=== PATIENT | male | born 2005 | race Asian ===

== ENCOUNTER 2025-04-13 01:22 | Inpatient (IN) | payer OTHER ==
[2025-04-13] MEDS ORDERED: cefTRIAXone (ROCEPHIN) 1 GM VIAL ONE (02:21)
[2025-04-13] MEDS ORDERED: Azithromycin 500 MG VIAL ONE (02:21)
[2025-04-13 02:24] LABS: #Basophils 0.03 10x3/uL (0.0-0.2); #Eosinophils Less than 0.03 10x3/uL (0.0-0.7); #Monocytes 1.35 10x3/uL (0.11-0.59); #Neutrophils 7.82 10x3/uL (1.40-6.50); %Basophils 0.3 % (0.0-1.0); %Eosinophils 0.0 % (0.0-10.0); %Lymphocytes 14.2 % (21.0-51.0); %Monocytes 12.5 % (0.0-10.0); %Neutrophils 72.6 % (42.0-75.0); Hematocrit 32.1 % (42.0-52.0); Hemoglobin 10.1 g/dL (14.0-18.0); Mean Corpuscular Hemoglobin 23.7 pg (27.0-31.0); Mean Corpuscular Volume 75.4 fL (78.0-98.0); Platelet Count 345 10x3/uL (130-400); Red Blood Cell (RBC) Count 4.26 mill/uL (4.70-6.10); White Blood Cell (WBC) Count 10.77 10x3/uL (4.8-10.8)
[2025-04-13] MEDS ORDERED: Acetaminophen 500 MG TAB ONE (02:28)
[2025-04-13 02:42] LABS: ALT (SGPT) 25 U/L (Less than 45); AST (SGOT) 28 U/L (11-34); Albumin 3.1 g/dL (3.1-4.5); Alkaline Phosphatase 57 U/L (40-110); Anion Gap 15 mmol/L (10-20); BUN (Urea Nitrogen) 8 mg/dL (8.9-20.6); Bilirubin, Total 0.4 mg/dL (0.3-1.2); Calc. Creatinine Clearance 0 mL/min (70-130); Calcium 8.8 mg/dL (7.8-10.44); Carbon Dioxide 24 mmol/L (22-29); Chloride 99 mmol/L (98-107); Globulin 4.9 g/dL (2.4-3.5); Glucose 111 mg/dL (70-105); Potassium 3.5 mmol/L (3.5-5.1); Sodium 134 mmol/L (136-145)
[2025-04-13 03:03] LABS: HIV (1/2) Antibody/Antigen NONREACTIVE (NonReactive); HIV 1/2 INDEX 0.11 S/CO (<1.00)
[2025-04-13] MEDS ORDERED: Calcium Carbonate 500 MG ChewTAB PO PRN (04:23)
[2025-04-13] MEDS ORDERED: Senokot S 8.6-50 MG TAB PO PRN (04:23)
[2025-04-13] MEDS ORDERED: Ondansetron PF 4 MG/2 ML Vial IVP PRN (04:23)
[2025-04-13] MEDS ORDERED: Albuterol 200 PUFF (6.7GM INHALER) INH PRN (04:28)
[2025-04-13] MEDS ORDERED: Benzonatate 100 MG CAP PO PRN (04:28)
[2025-04-13 05:34] VITALS: BMI 19.9
[2025-04-13] MEDS: FLU (Fluarix Triv) 25-26 (6MOS UP)/PF 45 MCG/0.5 ML Syringe IM ONE (10:46)
[2025-04-13] MEDS ORDERED: Iopamidol-370 76% 500 ML MDV (1 ML CHARGE) ONE (13:36)
[2025-04-13] MEDS: Acetaminophen 325 MG TAB PO PRN (20:53)
[2025-04-14 06:47] LABS: #Basophils 0.05 10x3/uL (0.0-0.2); #Eosinophils 0.03 10x3/uL (0.0-0.7); #Monocytes 1.30 10x3/uL (0.11-0.59); #Neutrophils 7.01 10x3/uL (1.40-6.50); %Basophils 0.5 % (0.0-1.0); %Eosinophils 0.3 % (0.0-10.0); %Lymphocytes 12.7 % (21.0-51.0); %Monocytes 13.5 % (0.0-10.0); %Neutrophils 72.6 % (42.0-75.0); Hematocrit 35.4 % (42.0-52.0); Hemoglobin 10.8 g/dL (14.0-18.0); Mean Corpuscular Hemoglobin 23.7 pg (27.0-31.0); Mean Corpuscular Volume 77.8 fL (78.0-98.0); Platelet Count 364 10x3/uL (130-400); Red Blood Cell (RBC) Count 4.55 mill/uL (4.70-6.10); White Blood Cell (WBC) Count 9.66 10x3/uL (4.8-10.8)
[2025-04-14 07:02] LABS: CRP, High Sensitivity at Bryan 14.74 mg/dL (< or = 0.5)
[2025-04-14 07:04] LABS: ALT (SGPT) 21 U/L (Less than 45); AST (SGOT) 20 U/L (11-34); Albumin 2.6 g/dL (3.1-4.5); Alkaline Phosphatase 49 U/L (40-110); Anion Gap 12 mmol/L (10-20); BUN (Urea Nitrogen) Less than 4 mg/dL (8.9-20.6); Bilirubin, Total 0.4 mg/dL (0.3-1.2); Calc. Creatinine Clearance 144 mL/min (70-130); Calcium 8.7 mg/dL (7.8-10.44); Carbon Dioxide 23 mmol/L (22-29); Chloride 105 mmol/L (98-107); Globulin 4.5 g/dL (2.4-3.5); Glucose 91 mg/dL (70-105); Iron 13 ug/dL (65-175); Iron Binding Capacity, Total 204 mcg/dL (261-462); Potassium 4.1 mmol/L (3.5-5.1); Sodium 136 mmol/L (136-145)
[2025-04-14 07:06] LABS: Iron 14 ug/dL (65-175); Iron Binding Capacity, Total 211 mcg/dL (261-462)
[2025-04-14 07:35] LABS: Ferritin 271.16 ng/mL (22-322); Vitamin B12 405.0 pg/mL (211-911)
[2025-04-14] MEDS ORDERED: Azithromycin 500 MG in Sodium Chloride 0.9% 250 ML 250 ML IVPB SCH (09:00)
[2025-04-14] MEDS ORDERED: cefTRIAXone\\ROCEPHIN 1 GM in Sodium Chloride 0.9% 100 ML IVPB SCH (09:00)
[2025-04-15 06:48] LABS: #Basophils 0.04 10x3/uL (0.0-0.2); #Eosinophils 0.03 10x3/uL (0.0-0.7); #Monocytes 1.66 10x3/uL (0.11-0.59); #Neutrophils 8.34 10x3/uL (1.40-6.50); %Basophils 0.3 % (0.0-1.0); %Eosinophils 0.3 % (0.0-10.0); %Lymphocytes 12.1 % (21.0-51.0); %Monocytes 14.4 % (0.0-10.0); %Neutrophils 72.2 % (42.0-75.0); Hematocrit 36.0 % (42.0-52.0); Hemoglobin 11.1 g/dL (14.0-18.0); Mean Corpuscular Hemoglobin 23.7 pg (27.0-31.0); Mean Corpuscular Volume 76.8 fL (78.0-98.0); Platelet Count 393 10x3/uL (130-400); Red Blood Cell (RBC) Count 4.69 mill/uL (4.70-6.10); White Blood Cell (WBC) Count 11.55 10x3/uL (4.8-10.8)
[2025-04-15 07:02] LABS: ALT (SGPT) 25 U/L (Less than 45); AST (SGOT) 30 U/L (11-34); Albumin 2.8 g/dL (3.1-4.5); Alkaline Phosphatase 52 U/L (40-110); Anion Gap 15 mmol/L (10-20); BUN (Urea Nitrogen) 7 mg/dL (8.9-20.6); Bilirubin, Total 0.6 mg/dL (0.3-1.2); Calc. Creatinine Clearance 144 mL/min (70-130); Calcium 9.0 mg/dL (7.8-10.44); Carbon Dioxide 22 mmol/L (22-29); Chloride 100 mmol/L (98-107); Globulin 4.9 g/dL (2.4-3.5); Glucose 86 mg/dL (70-105); Potassium 3.9 mmol/L (3.5-5.1); Sodium 133 mmol/L (136-145)
[2025-04-15 12:23] LABS: Bacteria/HPF None Seen HPF (None Seen); Glucose, Urine (Dipstick) Normal (Negative); Leukocyte Negative Leu/uL (Negative); Protein, Urine (Dipstick) Negative (Neg-Trace); Specific Gravity, Urine 1.015 (1.002-1.036); WBC/HPF 0-3 HPF (0-3)
[2025-04-16 05:25] LABS: #Basophils 0.03 10x3/uL (0.0-0.2); #Eosinophils 0.03 10x3/uL (0.0-0.7); #Monocytes 1.54 10x3/uL (0.11-0.59); #Neutrophils 6.64 10x3/uL (1.40-6.50); %Basophils 0.3 % (0.0-1.0); %Eosinophils 0.3 % (0.0-10.0); %Lymphocytes 12.3 % (21.0-51.0); %Monocytes 16.3 % (0.0-10.0); %Neutrophils 70.3 % (42.0-75.0); Hematocrit 33.6 % (42.0-52.0); Hemoglobin 10.4 g/dL (14.0-18.0); Mean Corpuscular Hemoglobin 23.9 pg (27.0-31.0); Mean Corpuscular Volume 77.2 fL (78.0-98.0); Platelet Count 367 10x3/uL (130-400); Red Blood Cell (RBC) Count 4.35 mill/uL (4.70-6.10); White Blood Cell (WBC) Count 9.45 10x3/uL (4.8-10.8)
[2025-04-16 05:41] LABS: ALT (SGPT) 44 U/L (Less than 45); AST (SGOT) 39 U/L (11-34); Albumin 2.5 g/dL (3.1-4.5); Alkaline Phosphatase 57 U/L (40-110); Anion Gap 13 mmol/L (10-20); BUN (Urea Nitrogen) 8 mg/dL (8.9-20.6); Bilirubin, Total 0.3 mg/dL (0.3-1.2); Calc. Creatinine Clearance 132 mL/min (70-130); Calcium 8.5 mg/dL (7.8-10.44); Carbon Dioxide 25 mmol/L (22-29); Chloride 102 mmol/L (98-107); Globulin 4.1 g/dL (2.4-3.5); Glucose 129 mg/dL (70-105); Potassium 3.8 mmol/L (3.5-5.1); Sodium 136 mmol/L (136-145)
[2025-04-16 22:39] LABS: Mycoplasma pneumoniae IgG AB 323 U/mL (0-99); Mycoplasma pneumoniae IgM AB Less than 770 U/mL (0-769)
[2025-04-17] MEDS: pyridOXINE 50 MG (B6) TAB PO SCH (09:46)
[2025-04-17 11:30] LABS: ANA Symphony (Qualitative) Negative (Negative); ANA Symphony (Quantitative) 0.3 Ratio (< 0.7 Negative); Mitochondrial Ab 2.0 U/mL (<4 Negative); Thyroid Peroxidase IgG Ab 5.6 IU/mL (<25 Normal); dsDNA IgG Antibody 2.3 IU/mL (<10 Negative)
[2025-04-17] MEDS: Sodium Chloride 3% (15 ML) NEB NEB SCH (15:25)
[2025-04-17 18:14] LABS: Myeloperoxidase AutoAbs <0.2 units (0.0-0.9); Proteinase-3 AutoAbs Less than 0.2 units (0.0-0.9)
[2025-04-18] MEDS: Sodium Chloride 3% (15 ML) NEB NEB SCH (06:39)
[2025-04-18 17:38] LABS: A. flavus Negative (Neg:<1:1); A. fumigatus Negative (Neg:<1:1); A. niger Negative (Neg:<1:1); Blastomyces AB Negative (Neg:<1:1)
[2025-04-19 15:14] LABS: Histoplasma Antigen - Urine Negative (<0.2 ng/mL)
[2025-04-20 09:03] LABS: #Basophils 0.05 10x3/uL (0.0-0.2); #Eosinophils 0.07 10x3/uL (0.0-0.7); #Monocytes 0.99 10x3/uL (0.11-0.59); #Neutrophils 5.18 10x3/uL (1.40-6.50); %Basophils 0.7 % (0.0-1.0); %Eosinophils 0.9 % (0.0-10.0); %Lymphocytes 14.9 % (21.0-51.0); %Monocytes 13.3 % (0.0-10.0); %Neutrophils 69.7 % (42.0-75.0); Hematocrit 36.1 % (42.0-52.0); Hemoglobin 10.9 g/dL (14.0-18.0); Mean Corpuscular Hemoglobin 23.3 pg (27.0-31.0); Mean Corpuscular Volume 77.1 fL (78.0-98.0); Platelet Count 453 10x3/uL (130-400); Red Blood Cell (RBC) Count 4.68 mill/uL (4.70-6.10); White Blood Cell (WBC) Count 7.44 10x3/uL (4.8-10.8)
[2025-04-20 09:23] LABS: ALT (SGPT) 36 U/L (Less than 45); AST (SGOT) 23 U/L (11-34); Albumin 2.6 g/dL (3.1-4.5); Alkaline Phosphatase 73 U/L (40-110); Anion Gap 13 mmol/L (10-20); BUN (Urea Nitrogen) 8 mg/dL (8.9-20.6); Bilirubin, Total 0.4 mg/dL (0.3-1.2); Calc. Creatinine Clearance 160 mL/min (70-130); Calcium 8.7 mg/dL (7.8-10.44); Carbon Dioxide 23 mmol/L (22-29); Chloride 106 mmol/L (98-107); Globulin 4.9 g/dL (2.4-3.5); Glucose 99 mg/dL (70-105); Potassium 3.7 mmol/L (3.5-5.1); Sodium 138 mmol/L (136-145)
[2025-04-20 19:46] VITALS: BMI 19.9
[2025-04-21] MEDS: Sodium Chloride 3% (15 ML) NEB NEB SCH (17:24)
[2025-04-21] MEDS: Heparin 5,000 UNITS/ML VIAL SC SCH (20:28)
[2025-04-22] MEDS: Sodium Chloride 3% (15 ML) NEB NEB SCH (06:23)
[2025-04-22] MEDS: Multivit, Therapeutic 1 TAB PO SCH (09:06)
[2025-04-23 08:03] LABS: #Basophils 0.05 10x3/uL (0.0-0.2); #Eosinophils 0.09 10x3/uL (0.0-0.7); #Monocytes 0.78 10x3/uL (0.11-0.59); #Neutrophils 4.37 10x3/uL (1.40-6.50); %Basophils 0.8 % (0.0-1.0); %Eosinophils 1.4 % (0.0-10.0); %Lymphocytes 16.3 % (21.0-51.0); %Monocytes 12.2 % (0.0-10.0); %Neutrophils 68.7 % (42.0-75.0); Hematocrit 36.4 % (42.0-52.0); Hemoglobin 11.1 g/dL (14.0-18.0); Mean Corpuscular Hemoglobin 23.6 pg (27.0-31.0); Mean Corpuscular Volume 77.3 fL (78.0-98.0); Platelet Count 499 10x3/uL (130-400); Red Blood Cell (RBC) Count 4.71 mill/uL (4.70-6.10); White Blood Cell (WBC) Count 6.37 10x3/uL (4.8-10.8)
[2025-04-23 08:11] LABS: Anion Gap 15 mmol/L (10-20); BUN (Urea Nitrogen) 10 mg/dL (8.9-20.6); Calc. Creatinine Clearance 154 mL/min (70-130); Calcium 9.0 mg/dL (7.8-10.44); Carbon Dioxide 22 mmol/L (22-29); Chloride 107 mmol/L (98-107); Glucose 102 mg/dL (70-105); Potassium 3.9 mmol/L (3.5-5.1); Sodium 140 mmol/L (136-145)
[2025-04-23 08:12] LABS: CRP, High Sensitivity at Bryan 4.43 mg/dL (< or = 0.5)
[2025-04-27 05:30] LABS: #Basophils 0.06 10x3/uL (0.0-0.2); #Eosinophils 0.12 10x3/uL (0.0-0.7); #Monocytes 1.07 10x3/uL (0.11-0.59); #Neutrophils 5.60 10x3/uL (1.40-6.50); %Basophils 0.7 % (0.0-1.0); %Eosinophils 1.5 % (0.0-10.0); %Lymphocytes 15.4 % (21.0-51.0); %Monocytes 13.1 % (0.0-10.0); %Neutrophils 68.7 % (42.0-75.0); Hematocrit 35.7 % (42.0-52.0); Hemoglobin 11.1 g/dL (14.0-18.0); Mean Corpuscular Hemoglobin 24.3 pg (27.0-31.0); Mean Corpuscular Volume 78.3 fL (78.0-98.0); Platelet Count 397 10x3/uL (130-400); Red Blood Cell (RBC) Count 4.56 mill/uL (4.70-6.10); White Blood Cell (WBC) Count 8.16 10x3/uL (4.8-10.8)
[2025-04-27 05:48] LABS: ALT (SGPT) 127 U/L (Less than 45); AST (SGOT) 118 U/L (11-34); Albumin 3.0 g/dL (3.1-4.5); Alkaline Phosphatase 77 U/L (40-110); Anion Gap 12 mmol/L (10-20); BUN (Urea Nitrogen) 9 mg/dL (8.9-20.6); Bilirubin, Total 0.1 mg/dL (0.3-1.2); Calc. Creatinine Clearance 136 mL/min (70-130); Calcium 8.8 mg/dL (7.8-10.44); Carbon Dioxide 27 mmol/L (22-29); Chloride 104 mmol/L (98-107); Globulin 4.7 g/dL (2.4-3.5); Glucose 136 mg/dL (70-105); Potassium 3.5 mmol/L (3.5-5.1); Sodium 139 mmol/L (136-145)
[2025-04-30 10:59] LABS: #Basophils 0.06 10x3/uL (0.0-0.2); #Eosinophils 0.09 10x3/uL (0.0-0.7); #Monocytes 0.79 10x3/uL (0.11-0.59); #Neutrophils 4.92 10x3/uL (1.40-6.50); %Basophils 0.8 % (0.0-1.0); %Eosinophils 1.2 % (0.0-10.0); %Lymphocytes 20.2 % (21.0-51.0); %Monocytes 10.7 % (0.0-10.0); %Neutrophils 66.4 % (42.0-75.0); Hematocrit 43.0 % (42.0-52.0); Hemoglobin 13.1 g/dL (14.0-18.0); Mean Corpuscular Hemoglobin 24.2 pg (27.0-31.0); Mean Corpuscular Volume 79.5 fL (78.0-98.0); Platelet Count 429 10x3/uL (130-400); Red Blood Cell (RBC) Count 5.41 mill/uL (4.70-6.10); White Blood Cell (WBC) Count 7.41 10x3/uL (4.8-10.8)
[2025-04-30 11:17] LABS: ALT (SGPT) 174 U/L (Less than 45); AST (SGOT) 120 U/L (11-34); Albumin 3.4 g/dL (3.1-4.5); Alkaline Phosphatase 93 U/L (40-110); Anion Gap 12 mmol/L (10-20); BUN (Urea Nitrogen) 9 mg/dL (8.9-20.6); Bilirubin, Total 0.5 mg/dL (0.3-1.2); Calc. Creatinine Clearance 141 mL/min (70-130); Calcium 9.6 mg/dL (7.8-10.44); Carbon Dioxide 28 mmol/L (22-29); Chloride 102 mmol/L (98-107); Globulin 5.2 g/dL (2.4-3.5); Glucose 85 mg/dL (70-105); Potassium 4.3 mmol/L (3.5-5.1); Sodium 138 mmol/L (136-145)
[2025-05-01 17:25] VITALS: BP 116/73; TEMP 98.4
== END 2025-05-01 18:37 | disposition home or self-care (01) | DRG 871 ==
LOC: SUATTDRO 01:22 → ERS 01:22 → T4-B 04:21 → OBSVTOIN 09:30
PROVIDERS: ADMIT Internal Medicine; ATTEND Internal Medicine
DX: A41.9 Sepsis, unspecified organism (principal); J15.4 Pneumonia due to other streptococci; J18.9 Pneumonia, unspecified organism; A18 Tuberculosis of other organs; E87.1 Hypo-osmolality and hyponatremia; E44.0 Moderate protein-calorie malnutrition; D50.9 Iron deficiency anemia, unspecified; Z79.899 Other long term (current) drug therapy; Z68.20 Body mass index [BMI] 20.0-20.9, adult
CPT/HCPCS: 36415; 71045; 71275; 80048; 80053; 81001; 82607; 82728; 83516; 83540; 83550; 83605; 83880; 84145; 84484; 85025; 86037; 86038; 86141; 86160; 86225; 86376; 86480; 86606; 86612; 87040; 87070; 87081; 87116; 87205; 87206; 87385; 87389; 87428; 87430; 87449; 93005; 94640; 94760; 96365; 96367; G0378; J0456; J0696; J1644; J2543; J7030; Q9967